=== PATIENT | female | born 1980 | race Caucasian/White ===

== ENCOUNTER 2020-08-12 10:08 | Outpatient (CLI) | payer OTHER, SELFPAY ==
--- NOTE | 2020-08-27 15:42 | WPDHOMESLEEP ---
Sleep Study - Home Unattended Date of Study: 08/12/20 Ordering Provider: Wade Medina APRN Interpreting Provider: Francoise Rajan MD Home Sleep Study Type: Watch PAT Height: 1.7 m Weight: 106.594 kg Body Mass Index: 36.8 Neck Circumference (inches): 16.25 [place]: 5 Reason for Sleep Study hypersomnolence, loud snoring Sleep History Mary Melendez is a 40 year old female who has a history of loud snoring and restless sleep. She had a sleep study in July 08, 2003 showing episodes of prolonged wakefulness and multiple arousals with multiple periodic limb movements. She has a history of restless legs syndrome. She did not have sleep-disordered breathing. She always snores loudly enough that others complain and she wakes up feeling tired. She occasionally awakens from sleep feeling short of breath. She frequently awakens at night with heartburn, belching or coughing. She frequently has trouble sleeping with a cold. She occasionally wakes up gasping for breath at night. She rarely has breathing problems at night observed by others. She frequently sweats excessively at night and notices her heart pounding excessively at night. She rarely falls asleep during the day, never involuntarily or while driving. She does not have loss of muscle tone with strong emotion. She only rarely has daytime difficulties due to excessive sleepiness. She does not feel paralyzed on waking falling asleep. She occasionally has vivid dreamlike scenes upon awakening or falling asleep. She does not feel afraid to go to sleep. She occasionally has nightmares. She occasionally remembers her dreams. She frequently has racing thoughts. She rarely feels sad or depressed. She occasionally has anxiety, worries about things. She rarely has muscular tension. She occasionally notices parts of her body jerking. She frequently kicks at night and frequently has the sensation of crawling and aching feelings in her legs at night. She occasionally has leg pain at night. She frequently has morning jaw pain. She frequently grinds her teeth during sleep. She frequently is bothered by pain during the day, awakened by pain at night, wakes up feeling stiff in the morning with sore or achy muscles and pain in the spine. She has fatigue and occasional morning headaches. She has nasal allergies and GERD. She has gained 20 lb in the last year. She has had a septoplasty. Normal bedtime is 9:30 p.m. falling asleep within 10 minutes, typically waking 2-3 times at night for 10-15 minutes. During this time she urinates. She returns to bed. She wakes in the morning at 5:30 a.m.. On the weekends she stays awake later, 10 to 10:30 p.m. and wakes at 7:00 a.m.. Her social life is different at to COVID as well as having a baby but not specifically her sleep issues. She does not generally take naps. Short nap is not refreshing. She is drowsy in the morning for an hour. Habits: Never smoked tobacco. Caffeine 1 coffee daily. Rare alcohol. No recreational drugs. [facility] Past Medical History Medical History (Updated 08/27/20 @ 16:01 by Francoise Rajan MD) Arthritis Gastroesophageal reflux disease Hypertension Surgical History Surgical History (Updated 08/27/20 @ 15:53 by Francoise Rajan MD) History of nasal septoplasty Hx of cholecystectomy Family History Family History Mother Hypertension Acute myocardial infarction Father Family history of heart disease in male family member before age 55 Other Family history of thyroid disease Social History Social History Smoking status: Never smoker Alcohol intake: current Medications Home Medications Medication Instructions Recorded Confirmed Type omeprazole 20 mg tablet,delayed 20 mg PO DAILY 08/24/19 06/27/20 History release mometasone 0.1 % topical cream 1 applic TOPICAL DAILY
[2020-08-27 19:28] VITALS: BMI 36.8
== END 2020-08-12 10:09 | disposition home or self-care (01) ==
LOC: ANHCSM 10:09
PROVIDERS: PCP Internal Medicine; Visit Provider Nurse Practitioner
DX: G47.33 Obstructive sleep apnea (adult) (pediatric) (principal)
CPT/HCPCS: 95800

== ENCOUNTER 2021-03-20 07:39 | Outpatient (CLI) | payer OTHER, SELFPAY ==
--- NOTE | 2021-04-09 17:37 | WPDSLEEPSTUD ---
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 Sleep History Mary Melendez is a 41 year old female who has a history of loud snoring and restless sleep. She had a sleep study in July 08, 2003 showing episodes of prolonged wakefulness and multiple arousals with multiple periodic limb movements. She has a history of restless legs syndrome. More recent testing with a home sleep test showing severe RODNEY. She always snores loudly enough that others complain and she wakes up feeling tired. She occasionally awakens from sleep feeling short of breath. She frequently awakens at night with heartburn, belching or coughing. She frequently has trouble sleeping with a cold. She occasionally wakes up gasping for breath at night. She rarely has breathing problems at night observed by others. She frequently sweats excessively at night and notices her heart pounding excessively at night. She rarely falls asleep during the day, never involuntarily or while driving. She does not have loss of muscle tone with strong emotion. She only rarely has daytime difficulties due to excessive sleepiness. She does not feel paralyzed on waking falling asleep. She occasionally has vivid dreamlike scenes upon awakening or falling asleep. She does not feel afraid to go to sleep. She occasionally has nightmares. She occasionally remembers her dreams. She frequently has racing thoughts. She rarely feels sad or depressed. She occasionally has anxiety, worries about things. She rarely has muscular tension. She occasionally notices parts of her body jerking. She frequently kicks at night and frequently has the sensation of crawling and aching feelings in her legs at night. She occasionally has leg pain at night. She frequently has morning jaw pain. She frequently grinds her teeth during sleep. She frequently is bothered by pain during the day, awakened by pain at night, wakes up feeling stiff in the morning with sore or achy muscles and pain in the spine. She has fatigue and occasional morning headaches. She has nasal allergies and GERD. She has gained 20 lb in the last year. She has had a septoplasty. Normal bedtime is 9:30 p.m. falling asleep within 10 minutes, typically waking 2-3 times at night for 10-15 minutes. During this time she urinates. She returns to bed. She wakes in the morning at 5:30 a.m.. On the weekends she stays awake later, 10 to 10:30 p.m. and wakes at 7:00 a.m.. Her social life is different at to COVID as well as having a baby but not specifically her sleep issues. She does not generally take naps. Short nap is not refreshing. She is drowsy in the morning for an hour. bits: Never smoked tobacco. Caffeine 1 coffee daily. Rare alcohol. No recreational drugs. [facility] Past Medical History Medical History Arthritis Gastroesophageal reflux disease Hypertension Obstructive sleep apnea Surgical History Surgical History History of nasal septoplasty Hx of cholecystectomy Family History Family History Mother Hypertension Acute myocardial infarction Father Family history of heart disease in male family member before age 55 Other Family history of thyroid disease Social History Social History (Reviewed 04/09/21
[2021-04-09 17:41] VITALS: BMI 34.4
== END 2021-03-21 07:01 | disposition home or self-care (01) ==
LOC: ANHCSM 07:40
PROVIDERS: PCP Internal Medicine; Visit Provider Nurse Practitioner Family
DX: G47.33 Obstructive sleep apnea (adult) (pediatric) (principal)
CPT/HCPCS: 95811